=== PATIENT | female | born 1940 | race Caucasian/White ===

== ENCOUNTER 2019-12-09 01:54 | Inpatient (IN) | payer OTHER ==
[2019-12-09] VITALS (11 sets, daily range): BP systolic 100–130; BP diastolic 52–83
[~2019-12-09] VITALS: Ht 137.2 cm; Wt 48.1 kg
[2019-12-09] MEDS ORDERED: nitroGLYCERIN 0.4mg SUBLingual tab SL PRN ×2 (02:15→03:55)
[2019-12-09] MEDS ORDERED: aspirin 81mg tab.chew PO ONE (02:15)
[2019-12-09] MEDS ORDERED: CHOL200077 PO (02:28)
[2019-12-09] MEDS ORDERED: BETA1TAB20 PO (02:28)
[2019-12-09] MEDS ORDERED: DONE5TAB7 PO (02:28)
[2019-12-09] MEDS ORDERED: METO100T7 PO (02:28)
[2019-12-09] MEDS ORDERED: ATOR20TA PO (02:28)
[2019-12-09] MEDS ORDERED: ASPI81TA52 PO (02:28)
[2019-12-09] MEDS ORDERED: LISI-600 PO (02:28)
[2019-12-09] MEDS ORDERED: LORA-269 PO (02:29)
[2019-12-09] MEDS ORDERED: LORazepam 0.5 MG tablet PO STA (02:30)
--- NOTE | 2019-12-09 02:37 | NUR ---
holding NTG as SBP 104
[2019-12-09 02:38] LABS: BASOPHILS # (AUTO) 0.1 X10'3 (0-0.2); BASOPHILS % (AUTO) 1.5 % (0-1); EOSINOPHILS # (AUTO) 0.2 X10'3 (0-0.9); EOSINOPHILS % (AUTO) 2.9 % (0-6); HEMATOCRIT 44.3 % (35.0-45.0); HEMOGLOBIN 14.7 g/dl (12.0-16.0); LYMPHOCYTES % (AUTO) 29.3 % (21-51); MEAN CORPUSCULAR HEMOGLOBIN 28.5 PG (27.0-31.0); MEAN CORPUSCULAR HGB CONC 33.3 g/dL (33.0-36.5); MEAN CORPUSCULAR VOLUME 85.5 FL (78-98); MEAN PLATELET VOLUME 11.2 FL (7.4-10.4); MONOCYTES # (AUTO) 0.5 X10'3 (0-0.9); MONOCYTES % (AUTO) 7.7 % (2-12); NEUTROPHILS % (AUTO) 58.6 % (42-75); PLATELET COUNT 180 X10'3 (140-440); RED BLOOD COUNT 5.17 X10'6 (4.20-5.60); RED CELL DISTRIBUTION WIDTH 13.9 % (11.5-14.5); WHITE BLOOD COUNT 6.7 X10'3 (4.5-11.0)
[2019-12-09 02:50] LABS: PARTIAL THROMBOPLASTIN TIME 30 SECONDS (22-32)
[2019-12-09 02:52] LABS: ALANINE AMINOTRANSFERASE 33 U/L (12-78); ALBUMIN 3.9 G/DL (3.4-5.0); ALBUMIN/GLOBULIN RATIO 1.1 (1.1-1.5); ALKALINE PHOSPHATASE 89 IU/L (46-116); ANION GAP 8 (8-16); ASPARTATE AMINO TRANSFERASE 28 U/L (10-37); BILIRUBIN,TOTAL 0.8 MG/DL (0.1-1.0); BLOOD UREA NITROGEN 15 MG/DL (7-18); BUN/CREATININE RATIO 17.4 (6.6-38.0); CALCIUM 9.4 MG/DL (8.5-10.1); CHLORIDE 105 MMOL/L (99-107); CREATININE 0.86 MG/DL (0.40-0.90); GLUCOSE 116 MG/DL (70-104); POTASSIUM 3.8 MMOL/L (3.5-5.1); SODIUM 141 MMOL/L (135-145); TOTAL CARBON DIOXIDE 28.3 MMOL/L (24-32); TOTAL PROTEIN 7.4 G/DL (6.4-8.2); eGFR 64 ML/MIN
[2019-12-09 03:16] LABS: GIANT PLATELET FEW; LARGE PLATELETS MANY; PLATELET ESTIMATE NORMAL
[2019-12-09] MEDS ORDERED: fentaNYL/PF 50MCG/1 ML 2ML syringe IV ONE (03:20)
[2019-12-09] MEDS ORDERED: magnesium 2GM in 50ml NS 50 ML IV PRN (03:55)
[2019-12-09] MEDS ORDERED: magnesium hydroxide 30ml (MOM) UD suspension PO PRN (03:55)
[2019-12-09] MEDS ORDERED: ondansetron/PF 4mg/2ml inj IV PRN (03:55)
[2019-12-09] MEDS ORDERED: acetaminophen 325mg tablet PO PRN (03:55)
[2019-12-09] MEDS ORDERED: metoprolol tartrate 1mg/ml inj IV PRN (03:55)
[2019-12-09] MEDS ORDERED: aminophylline 250mg/10ml inj. IV PRN (03:55)
[2019-12-09] MEDS ORDERED: magnesium Cl slow-release 64mg tablet PO PRN (03:55)
[2019-12-09] MEDS ORDERED: magnesium 4gm in 100ml NS 100 ML IV PRN (03:55)
[2019-12-09] MEDS ORDERED: regadenoson 0.4mg/5ml syringe IV PRN (03:55)
[2019-12-09] MEDS ORDERED: potassium Cl 20 mEq SR tablet PO PRN ×2 (03:55)
[2019-12-09] MEDS ORDERED: potassium CL 10mEq/100ml bag 100 ML IV PRN ×2 (03:55)
[2019-12-09] MEDS ORDERED: mag hydrox/Alum hydrox/simeth 30ml oral suspension PO PRN (03:55)
--- NOTE | 2019-12-09 05:01 | NUR ---
Patient arrived via gurney to unit. Received report from RN at ER. Patient c/o of chest pain (CP) that radiated into her left shoulder. CP ongoing for two weeks and patient has been taking nitro. She was administered aspirin, ativan 0.5 po, and fentanyl in ER
--- NOTE | 2019-12-09 06:30 | NUR ---
Patient in room MED 316. I have received report from CASEY DELGADO AND RONY DELGADO and had the opportunity to ask questions and assume patient care.
--- NOTE | 2019-12-09 06:36 | NUR ---
Problems reprioritized. Patient report given, questions answered & plan of care reviewed with DANNY Mcmanus. Patient stable at shift change
[2019-12-09] MEDS ORDERED: K and/or MAG REPLACEMENT MC SCH (08:00)
[2019-12-09] MEDS ORDERED: aspirin 81mg tablet.DR PO SCH (08:00)
[2019-12-09] MEDS ORDERED: LORazepam 1 MG tablet PO SCH (08:00)
[2019-12-09] MEDS ORDERED: lisinopril 10 MG tablet PO SCH (08:00)
[2019-12-09] MEDS ORDERED: metoprolol succinate 25mg (24-HOUR) SR. Tablet PO SCH (08:00)
[2019-12-09] MEDS ORDERED: non-formulary drug (Vit A/Vit C/Vit E/Zinc/Copper (Preservision Tablet) 1 TAB) PO SCH (08:00)
[2019-12-09] MEDS ORDERED: donepezil 5mg tablet PO SCH (08:00)
--- NOTE | 2019-12-09 08:35 | NUR ---
Left for Nuc med.
[2019-12-09] MEDS ORDERED: pneumococcal 23-VAL P-sac vacc 25 mcg/0.5ml vial IMVAC ONE (09:50)
--- NOTE | 2019-12-09 11:27 | NUR ---
Arrived back from [facility].
[2019-12-09] MEDS: LORazepam 0.5 MG tablet PO SCH ×2 (12:58→16:32)
--- NOTE | 2019-12-09 13:02 | NUR ---
[facility], "[facility] [id number]- PLEASE CALL THIS NURSE RE: [phone] HEART MEDICATIONS TO BE GIVEN NOW. THANK YOU"
--- NOTE | 2019-12-09 15:16 | NUR ---
Paged hospitalist, "[place] [phone]- Please call re:[phone], appears to be positive stress test. Further orders?"
--- NOTE | 2019-12-09 16:50 | NUR ---
Escorted patient out via W/C per [facility] staff without event. Discussed discharge instructions with patient and her son, verbalized understanding, no new meds ordered. Patient knows to follow up with PMD for Ativan wishes. Tele removed and IV dc'd with cathlon intact. Eager to go home.
[2019-12-09] MEDS ORDERED: atorvastatin 20mg tablet PO SCH (21:00)
[2019-12-11] MEDS ORDERED: vitamin D (cholecalciferol) 1,000 unit tablet PO SCH (08:00)
== END 2019-12-09 16:45 | disposition home or self-care (01) | DRG 392 ==
LOC: ER 01:55 → ED HOLD 03:52 → UNDOADMIN 04:38 → ED HOLD 04:38 → MED 3N 04:50 → ED HOLD 04:50 → UNDODISIN 16:45
PROVIDERS: ADMIT Internal Medicine; ATTEND Family Medicine
PROC: 4A02XM4 Measurement of Cardiac Total Activity, External Approach (ICD-10-PCS; principal; 2019-12-09)
PROC: 3E0234Z Introduction of Serum, Toxoid and Vaccine into Muscle, Percutaneous Approach (ICD-10-PCS; 2019-12-09)
DX: K21.9 Gastro-esophageal reflux disease without esophagitis (principal); M81.0 Age-related osteoporosis without current pathological fracture; E78.5 Hyperlipidemia, unspecified; M54.9 Dorsalgia, unspecified; I25.10 Atherosclerotic heart disease of native coronary artery without angina pectoris; Z95.5 Presence of coronary angioplasty implant and graft; Z23 Encounter for immunization
CPT/HCPCS: 36415; 71045; 78452; 80053; 84484; 85025; 85610; 85730; 87081; 90732; 93005; 93017; 93306; 99285; A9500; G0378; J2405; J2785; J3010

== ENCOUNTER 2021-05-09 06:20 | Day surgery (SDC) | payer OTHER ==
[~2021-05-09] VITALS: Ht 139.7 cm; Wt 56.2 kg
[2021-05-09] VITALS (12 sets, daily range): BP systolic 110–125; BP diastolic 55–76
[~2021-05-09 06:20] MED LIST: ASPI81TA52 PO; ATOR20TA PO; BETA1TAB20 PO; CHOL200077 PO; DONE5TAB7 PO; LISI20TA28 PO; LORA-269 PO; METO100T7 PO
[2021-05-09] MEDS ORDERED: MESSAGE TO PHARMACY PO ONE (07:00)
[2021-05-09] MEDS ORDERED: LORazepam 0.5 MG tablet PO PRN (07:00)
[2021-05-09] MEDS ORDERED: dextrose ORAL solution 15 GM/59 ML bottle PO PRN ×2 (07:00)
[2021-05-09] MEDS ORDERED: diphenhydrAMINE 25mg capsule PO PRN (07:00)
[2021-05-09] MEDS ORDERED: glucagon, human recombinant 1mg kit SUBCUT PRN (07:00)
[2021-05-09] MEDS ORDERED: nitroGLYCERIN 0.4mg SUBLingual tab SL PRN ×2 (07:00→10:40)
[2021-05-09] MEDS ORDERED: insulin Lispro (HumaLOG) vial - multi-dose SQ SCH (07:00)
[2021-05-09] MEDS ORDERED: normal saline 1,000 ML IV SCH (07:00)
[2021-05-09] MEDS ORDERED: dextrose 50%-water 50ml dispensing syringe IV PRN ×2 (07:00)
[2021-05-09] MEDS ORDERED: NITR0.4T51 SL (07:01)
[2021-05-09] MEDS ORDERED: vitamin d PO (07:01)
[2021-05-09] MEDS ORDERED: ALEN70TA60 PO (07:01)
[2021-05-09] MEDS ORDERED: nitroGLYCERIN-Tridil 50MG/D5W 250 ML IV ONE (08:23)
[2021-05-09] MEDS ORDERED: iohexol 350 MG/ML 50ML vial IV ONE (08:23)
[2021-05-09] MEDS ORDERED: iohexol 350MG/ML 100ml bottle IV ONE (08:23)
[2021-05-09] MEDS ORDERED: midazolam 1 mg/ML 2ml injection ONE (08:23)
[2021-05-09] MEDS ORDERED: LIDOcaine 1% (10mg/ml)w/preservative injection 20ml MDV ONE (08:23)
[2021-05-09] MEDS ORDERED: fentaNYL/PF 50MCG/1 ML 2ML syringe ONE (08:23)
[2021-05-09] MEDS ORDERED: heparin 1,000unit/ml 10ml vial 10 ML ONE (08:23)
[2021-05-09] MEDS ORDERED: enalaprilat dihydrate 2.5mg/2ml vial IV ONE (09:57)
[2021-05-09] MEDS ORDERED: ondansetron/PF 4mg/2ml inj IV PRN (10:40)
[2021-05-09] MEDS ORDERED: HYDROcodone/acetaminophen 10/325mg tab PO PRN (10:40)
[2021-05-09] MEDS ORDERED: HYDROcodone/acetaminophen 5mg/325mg tablet PO PRN (10:40)
[2021-05-09] MEDS ORDERED: proCHLORperazine 10 MG/2 ml inj IV PRN (10:40)
[2021-05-09] MEDS ORDERED: OXAZEpam 15mg capsule PO PRN (10:40)
[2021-05-09] MEDS ORDERED: insulin glargine (Lantus) pen - multi-dose SQ SCH (21:00)
== END 2021-05-09 18:04 | disposition home or self-care (01) ==
LOC: SSTAY O 06:20
PROVIDERS: ATTEND Internal Medicine Cardiovascular Disease
DX: R94.39 Abnormal result of other cardiovascular function study (principal); T82.855A Stenosis of coronary artery stent, initial encounter; I25.10 Atherosclerotic heart disease of native coronary artery without angina pectoris; I10 Essential (primary) hypertension; E11.39 Type 2 diabetes mellitus with other diabetic ophthalmic complication; H40.9 Unspecified glaucoma; K21.9 Gastro-esophageal reflux disease without esophagitis; M19.90 Unspecified osteoarthritis, unspecified site; Z87.891 Personal history of nicotine dependence; Z79.899 Other long term (current) drug therapy; Y83.8 Other surgical procedures as the cause of abnormal reaction of the patient, or of later complication, without mention of misadventure at the time of the procedure; Y92.89 Other specified places as the place of occurrence of the external cause
CPT/HCPCS: 93005; 93458; 99152; C1760; C1769; J1644; J2001; J2250; J3010; J7030; Q0163; Q9967; 99153; A4620; A6258; J1815; J3490